=== PATIENT | female | born 1995 | race African-American/Black ===

== ENCOUNTER 2023-01-20 04:11 | Emergency (ER) | payer OTHER, SELFPAY ==
[2023-01-20 04:15] VITALS: BP 134/80; PULSE 81; RESP 18; TEMP 36.6; O2SAT 100; BMI 32.1
[2023-01-20 04:30] LABS: IDNOW Serial# 08D9AD1C; Strep A Nucleic Acid Negative (Negative)
--- NOTE | 2023-01-20 05:40 | ED.GENADULT ---
HPI - General Adult General Chief complaint: General Medical Stated complaint: Sore throat Time Seen by Provider: 01/20/23 05:14 Source: patient Mode of arrival: ambulatory History of Present Illness HPI narrative: 27-year-old female who reports onset of sore throat that she feels primarily on the right side and into the right ear but denies any fever, chills, cough. Related Data Allergies Allergy/AdvReac Type Severity Reaction Status Date / Time No Known Allergies Allergy Verified 01/20/23 04:17 Review of Systems Review of Systems: Pertinent positives and negatives as stated in [facility] Past Medical History Source: nursing notes reviewed Social History Social History Advance Directives: No Advance Directives Information Provided: Yes Physical Exam ED Vital Signs: Vital Signs - 24 hr 01/20/23 04:15 Temperature 98 F Pulse Rate 81 Respiratory Rate 18 Blood Pressure 134/80 Pulse Oximetry 100 Oxygen Delivery Method Room Air BMI result Body Mass Index 32.1 VITAL SIGNS: Reviewed. GENERAL: Well developed, well nourished, in no acute distress. HEAD: Normocephalic/atraumatic EYES: PERRLA, EOMI EARS: Ext canals without abnormality, TMs non-bulging and non-erythematous NOSE: Nares patent bilateral OROPHARYNX: no oral lesions noted, posterior pharynx clear and non-erythematous without noted tonsillar enlargement/erythema/exudates, no dental caries, uvula is midline and no unilateral tonsillar elevation. NECK: Supple, no adenopathy LUNGS: Normal breath sounds. No adventitious sounds or accessory muscle use. SpO2<100> CARDIOVASCULAR: Regular rate and rhythm without noted murmurs ABDOMEN: Soft, non-tender, non-distended with bowel sounds. MUSCULOSKELETAL: No tenderness, deformities, or effusions noted on gross inspection. EXTREMITIES: No cyanosis, clubbing or edema. SKIN: Inspection of the skin reveals no rashes NEUROLOGIC: Alert and oriented x 4. Strength and sensation to light touch were grossly intact x 4. Medical Decision Making Medical Decision Making [facility] Narrative: 27-year-old female with history and clinical presentation, DDX: Strep versus bacterial pharyngitis, postnasal drip. I reviewed the strep results which are negative to suggest bacterial pharyngitis, clinical exam already consistent with this finding, no evidence to suggest AOM and instructed patient for saline gargles, combination analgesics, and if she feels like she may be suffering from seasonal allergies I recommended Flonase and Claritin. She is otherwise discharged home in stable condition. Differential Diagnosis Please see the discussion above Lab Data Please see the discussion above Labs: Lab Results 01/20/23 Range/Units 04:18 S. pyogenes GrpA LORE Negative (Negative) Discharge Plan Discharge Clinical Impression: Pharyngitis Patient Disposition: Home, Self-Care Instructions: Pharyngitis (ED) Additional Instructions: 1. Recommend [id number] Tylenol/ibuprofen as needed for pain control. 2. Also recommend using [id number] Cepacol for additional relief sore throat. 3. Saline gargles, warm tap water/table salt, gargle for 5 minutes, 3 to 4 times a day. Return to the ER for any worsening symptoms.
[2023-01-20 06:09] VITALS: BP 136/77; PULSE 74; RESP 14; TEMP 36.8; O2SAT 100
== END 2023-01-20 06:10 | disposition home or self-care (01) ==
PROVIDERS: Emergency Provider Student in an Organized Health Care Education/Training Program; PCP Physician Assistant Medical
DX: J02.9 Acute pharyngitis, unspecified (principal); Z20.822 Contact with and (suspected) exposure to COVID-19; Z20.828 Contact with and (suspected) exposure to other viral communicable diseases
CPT/HCPCS: 87651; 99283; 99284

== ENCOUNTER 2025-05-18 11:53 | Outpatient (AMB) | payer OTHER, SELFPAY ==
--- OUTSIDE RECORDS SUMMARY | 2024-06-10 06:30 | XMS_ITS ---
Author Organization [facility] [address] Address [address] [place] [address] Care Team Providers Care Clinic Business Manager Name Role Phone CANDICE NICOLA Unavailable [phone] HANNAH CARRION Unavailable [phone] Medications Medication SIG (Take, Route, Frequency, Duration) Notes Start Date End Date Status Wegovy 0.5 MG/0.5ML 0.5mg Subcutaneous w eekly; Duration: 30 days 05/14/2024 Active Naratriptan HCl 2.5 MG 1 tablet Orally Once a day Active Montelukast Sodium 10 MG 1 tablet Orally Once a day Active EPINEPHrine 0.3 MG/0.3ML as directed Injection Active traZODone HCl 100 MG 1 tablet at bedtime Orally Once a day Active Albuterol Sulfate 108 (90 Base) MCG/ACT 1 puff as needed Inhalation every 4 hrs Active Escitalopram Oxalate 20 MG 1 tablet Orally Once a day Active Dasetta 1-35 MG-MCG as directed Orally Active Wegovy 0.25 MG/0.5ML 0.25mg Subcutaneous weekly; Duration: 30 days Active Topiramate 100 MG 1 tablet Orally Once a day Active Encounters Encounter Location Date Provider Diagnosis [facility] [address] [facility] [address] [place] [address] 06/10/2024 HANNAH CARRION Plan Of Treatment Next Appt Details Provider Name:NICOLA HARVEY, 05/20/2025 09:15:00 AM, [address], [address], [place], [address], Progress Notes * XOCHILT LEWISOB:1 07/28/1994 (29 yo F)Acc No.[id number]:06/10/2024 Patient: XOCHILT JOHN Provider: Tyson CARRION PA-C :1995 A ge:29 Y S ex:Female Date:06/10/2024 Address: [address], [place], [id number] Subjective: * Chief Complaints: * * Medical History: * Medications: T aking Wegovy 0.25 MG/0.5ML Solution Auto-injector 0.25mg Subcutaneous weekly , Taking Dasetta 1/35 1-35 MG-MCG Tablet as directed Orally , Taking Escitalopram Oxalate 20 MG Tablet 1 tablet Orally Once a day , Taking Albuterol Sulfate 108 (90 Base) MCG/ACT Aerosol Powder Breath Activated 1 puff as needed Inhalation every 4 hrs , Taking Topiramate 100 MG Tablet 1 tablet Orally Once a day , Taking traZODone HCl 100 MG Tablet 1 tablet at bedtime Orally Once a day , Taking EPINEPHrine 0.3 MG/0.3ML Solution Auto-injector as directed Injection , Taking Montelukast Sodium 10 MG Tablet 1 tablet Orally Once a day , Taking Naratriptan HCl 2.5 MG Tablet 1 tablet Orally Once a day , Taking Wegovy 0.5 MG/0.5ML Solution Auto-injector 0.5mg Subcutaneous weekly Objective: * Vitals: Assessment: Plan: * Treatment: * Images: Billing Information: * Visit Code: * Procedure Codes: * Electronic signature of BEL CARRION PA-C on 05/18/2025 at 02:41 PM EST Sign off status: Pending * Provider: Tyson CARRION PA-C Date: 08/10/2023 Generated for Eric rubio/Vernon/eTransmitting on: 07/18/2024 02:41 PM EST
--- OUTSIDE RECORDS SUMMARY | 2024-08-20 06:30 | XMS_ITS ---
Author Organization [facility] Address [address] [place] [address] Care Team Providers Care Graduate Assistant Athletic Trainer Name Role Phone NICOLA HARVEY Unavailable [phone] Medications Medication SIG (Take, Route, Fr equency, Duration) Notes Start Date End Date Status Wegovy 1 MG/0.5ML 1mg Subcutaneous wee kly; Duration: 30 days Active Encounters Encounter Location Date Provider Diagnosis [facility] [address] [address] 08/20/2024 NICOLA HARVEY Other obesity due to excess calories E66.09 ; BMI 30.0-30.9,adult Z68.30 ; Dietary counseling and surveillance Z71.3 ; Migraine without status migrainosus, not intractable, unspecified migraine type G43.909 and Depression with anxiety F41.8 Assessments Encounter Date Diagnosis (ICD Code) Assessment Notes Treatment Notes Treatment Clinical Notes Section Notes 08/20/2024 Other obesity due to excess calories (ICD-10 - E66.09) #Weight Management 08/20/2024 Updated labs are reviewed Thriving Increase to 1 mg Approaching target goal weight Discussed maintenance dosing Total time spent today was 30 minutes of which greater than 50% was spent on coordinating and counseling Patient has been found to be obese with a BMI of (30). Patient has class (1) obesity. Of note, some information is being carried forward from prior records for informational purposes only and is being cited so that efficiency, safety and quality of the patient's care is not compromised This note was prepared using voice recognition software and direct typing Please excuse inadvertent basketball referee or typing errors, or uncorrected word substitutions Although every attempt has been made by the provider to proofread this document, occasional misspellings and typographical errors may still be present Due to the previous pandemic, and the use of personal protective equipment (PPE) This may decrease voice recognition accuracy Inadvertent basketball referee errors may occur 08/20/2024 BMI 30.0-30.9,adult (ICD-10 - Z68.30) #Weight Management 08/20/2024 Updated labs are reviewed Thriving Increase to 1 mg Approaching target goal weight Discussed maintenance dosing Total time spent today was 30 minutes of which greater than 50% was spent on coordinating and counseling Patient has been found to be obese with a BMI of (30). Patient has class (1) obesity. Of note, some information is being carried forward from prior records for informational purposes only and is being cited so that efficiency, safety and quality of the patient's care is not compromised This note was prepared using voice recognition software and direct typing Please excuse inadvertent basketball referee or typing errors, or uncorrected word substitutions Although every attempt has been made by the provider to proofread this document, occasional misspellings and typographical errors may still be present Due to the previous pandemic, and the use of personal protective equipment (PPE) This may decrease voice recognition accuracy Inadvertent basketball referee errors may occur 08/20/2024 Dietary counseling and surveillance (ICD-10 - Z71.3) #Weight Management 08/20/2024 Updated labs are reviewed Thriving Increase to 1 mg Approaching target goal weight Discussed maintenance dosing Total time spent today was 30 minutes of which greater than 50% was spent on coordinating and counseling Patient has been found to be obese with a BMI of (30). Patient has class (1) obesity. Of note, some information is being carried forward from prior records for informational purposes only and is being cited so that efficiency, safety and quality of the patient's care is not compromised This note was prepared using voice recognition software and direct typing Please excuse inadvertent basketball referee or typing errors, or uncorrected word substitutions Although every attempt has been made by the provider to proofread this document, occasional misspellings and typographical errors may still be present Due to the previous pandemic, and the use of personal protective equipment (PPE) This may decrease voice recognition accuracy Inadvertent basketball referee errors may occur 08/20/2024 Migraine without status migrainosus, not intractable, unspecified migraine type (ICD-10 - G43.909) #Weight Management 08/20/2024 Updated labs are reviewed Thriving Increase to 1 mg Approaching target goal weight Discussed maintenance dosing Total time spent today was 30 minutes of which greater than 50% was spent on coordinating and counseling Patient has been found to be obese with a BMI of (30). Patient has class (1) obesity. Of note, some information is being carried forward from prior records for informational purposes only and is being cited so that efficiency, safety and quality of the patient's care is not compromised This note was prepared using voice recognition software and direct typing Please excuse inadvertent basketball referee or typing errors, or uncorrected word substitutions Although every attempt has been made by the provider to proofread this document, occasional misspellings and typographical errors may still be present Due to the previous pandemic, and the use of personal protective equipment (PPE) This may decrease voice recognition accuracy Inadvertent basketball referee errors may occur 08/20/2024 Depression with anxiety (ICD-10 - F41.8) #Weight Management 08/20/2024 Updated labs are reviewed Thriving Increase to 1 mg Approaching target goal weight Discussed maintenance dosing Total time spent today was 30 minutes of which greater than 50% was spent on coordinating and counseling Patient has been found to be obese with a BMI of (30). Patient has class (1) obesity. Of note, some information is being carried forward from prior records for informational purposes only and is being cited so that efficiency, safety and quality of the patient's care is not compromised This note was prepared using voice recognition software and direct typing Please excuse inadvertent basketball referee or typing errors, or uncorrected word substitutions Although every attempt has been made by the provider to proofread this document, occasional misspellings and typographical errors may still be present Due to the previous pandemic, and the use of personal protective equipment (PPE) This may decrease voice recognition accuracy Inadvertent basketball referee errors may occur Plan Of Treatment Medication Medication Name Sig Start Date Stop Date Notes Wegovy 1 MG/0.5ML 1mg Subcutaneous wee kly; Duration: 30 days Next Appt Details Provider Name:NICOLA HARVEY, 05/20/2025 09:15:00 AM, [address] [facility], [facility] [address], [place], [address], Progress Notes * XOCHILT LEWISOB:1 07/28/1994 (29 yo F)Acc No.[id number]:08/20/2024 Patient: XOCHILT JOHN Provider: Aurea HARVEY NP :1995 A ge:29 Y S ex:Female Date:08/20/2024 Address:[address], [place], [id number] Subjective: * Chief Complaints: * * HPI: C onstitutional: Patient is here today for a weight management f/u Patient seen and examined. Full past medical history, social history, family history, allergies and current medications were reviewed and updated. #Weight Management 08/20/2024 Comprehensive labs were reviewed May, [facility] Currently on Wegovy 0.5mg Injection: Appetite suppression is starting to wear off Interested in increasing to 1 mg Reports constipation that is improving with supplemental fiber Denies nausea side effect Down 18 pounds overall, most of which are fat mass Approaching target goal weight of 160 pounds We discussed maintenance dosing Diet: High protein, fruit, vegetables, some fast food Exercise: Currently Indoor Cycling x2 /week, tracking with 10,000 goal, usually 6,000 steps daily. Non-smoker. 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 * ROS: A ll Other Systems: Review of Systems (ROS) A ll others negative except those mentioned in HPI. * Medical History: Objective: * Vitals: * Examination: G eneral Examination: GENERAL APPEARANCE: i n no acute distress, well developed, well nourished. H EAD: n ormocephalic, atraumatic. E YES: p upils equal, round, reactive to light and accommodation. E ARS: n ormal. O RAL CAVITY: m ucosa moist. T HROAT: c lear. N THO/THYROID: n tho supple, full range of motion, no cervical lymphadenopathy. S KIN: n o suspicious lesions, warm and dry. H EART: n o murmurs, regular rate and rhythm, S1, S2 normal. L UNGS: c lear to auscultation bilaterally. A BDOMEN: n ormal, bowel sounds present, soft, nontender, nondistended. E XTREMITIES: n o clubbing, cyanosis, or edema. N EUROLOGIC: n onfocal, motor strength normal upper and lower extremities, sensory exam intact. Assessment: * Assessment: 1. O ther obesity due to excess calories - E66.09 (Primary) 2 . B ME 30.0-30.9,adult - Z68.30 3 . D ietary counseling and surveillance - Z71.3 ?4. M igraine without status migrainosus, not intractable, unspecified migraine type - G43.909 5 . D epression with anxiety - F41.8 #Weight Management 08/20/2024 Updated labs are reviewed Thriving Increase to 1 mg Approaching target goal weight Discussed maintenance dosing Total time spent today was 30 minutes of which greater than 50% was spent on coordinating and counseling Patient has been found to be obese with a BMI of (30). Patient has class (1) obesity. Of note, some information is being carried forward from prior records for informational purposes only and is being cited so that efficiency, safety and quality of the patient's care is not compromised This note was prepared using voice recognition software and direct typing Please excuse inadvertent basketball referee or typing errors, or uncorrected word substitutions Although every attempt has been made by the provider to proofread this document, occasional misspellings and typographical errors may still be present Due to the previous pandemic, and the use of personal protective equipment (PPE) This may decrease voice recognition accuracy Inadvertent basketball referee errors may occur. Plan: * Treatment: * Images: Billing Information: * Visit Code: * Procedure Codes: * Electronic signature of CARON HARVEY on 05/18/2025 at 02:42 PM EST Sign off status: Pending * Provider: Aurea AHRVEY NP Date: 0 08/20/2024 Generated for Printi ng/Faxing/eTransmitting on: 1 07/18/2024 02:42 PM EST History and Physical Notes * HPI (History of Present Illness) Category Sub-Category Detail Notes Category Not es Constitutional Patient is here today for a weight management f/u Patient seen and examined. Full past medical history, social history, family history, allergies and current medications were reviewed and updated. #Weight Management 08/20/2024 Comprehensive labs were reviewed May, [facility] Currently on Wegovy 0.5mg Injection: Appetite suppression is starting to wear off Interested in increasing to 1 mg Reports constipation that is improving with supplemental fiber Denies nausea side effect Down 18 pounds overall, most of which are fat mass Approaching target goal weight of 160 pounds We discussed maintenance dosing Diet: High protein, fruit, vegetables, some fast food Exercise: Currently Indoor Cycling x2 /week, tracking with 10,000 goal, usually 6,000 steps daily. Non-smoker. 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 Has attempted losing weight through cycling, unable to maintain weight loss Highest weight: 215lbs Lowest weight: 165lbs Goal weight: 150lbs PCP Ana Maria Solorzano at [facility] screening/STOP-BANG/[place], screened when she was a teenager, negative Comprehensive labs May 2024, [facility] CBC is stable Renal function electrolytes and LFTs are stable ALT minimally elevated at 51 Total cholesterol 123, triglycerides 106, HDL 41, LDL 62 Vitamin D 30 TSH 1.48 Examination Category Sub-Category Detail Notes Category Not es General Examination GENERAL APPEARANCE: in no ac comanche distress, well developed, well nourished HEAD: normocephalic, atrau matic EYES: pupils equal, round, reactive to light and accommodation EARS: normal THROAT: clear NECK/THYROID: neck supple, full ra nge of motion, no cervical lymphadenopathy HEART: no murmurs, regular rate and rhythm, S1, S2 normal LUNGS: clear to auscultatio n bilaterally ABDOMEN: normal, bowel sounds present, soft, nontender, nondistended NEUROLOGIC: nonfocal, motor stre ngth normal upper and lower extremities, sensory exam intact SKIN: no suspicious lesion s, warm and dry EXTREMITIES: no clubbing, cyanosi s, or edema ORAL CAVITY: mucosa moist
--- OUTSIDE RECORDS SUMMARY | 2025-01-13 04:15 | XMS_ITS ---
Author Organization [facility] [address] Address [address] [place] [address] Care Team Providers Care Product Communications Manager Name Role Phone VONNIETom NICOLA Unavailable [phone] Encounters Encounter Location Date Provider Diagnosis [facility] [address] [place] [address] 01/13/2025 NICOLA HARVEY Plan Of Treatment Next Appt Details Provider Name:NICOLA HARVEY, 05/20/2025 09:15:00 AM, [address], [address], [place], [address], Progress Notes * XOCHILT LEWISOB:1 07/28/1994 (29 yo F)Acc No.[id number]:01/13/2025 Patient: XOCHILT JOHN Provider: Aurea HARVEY NP :1995 A ge:29 Y S ex:Female Date:01/13/2025 Address:[address] [id number] Subjective: * Chief Complaints: * * Medical History: Objective: * Vitals: Assessment: Plan: * Treatment: * Images: Billing Information: * Visit Code: * Procedure Codes: * Electronic signature of CARON HARVEY on 05/18/2025 at 02:42 PM EST Sign off status: Pending * Provider: Aurea HARVEY NP Date: 0 01/13/2025 Generated for Printi ng/Faxing/eTransmitting on: 1 07/18/2024 02:42 PM EST
--- OUTSIDE RECORDS SUMMARY | 2025-03-23 05:00 | XMS_ITS ---
Author Organization [facility] Address [address] [place] [address] Care Team Providers Care Pressure Controller Name Role Phone NICOLA HARVEY Unavailable [phone] Medications Medication SIG (Take, Route, Frequency, Duration) Notes Start Date End Date Status Linzess 145 MCG 1 capsule at least 3 0 minutes before the first meal of the day on an empty stomach Orally Once a day; Duration: 30 days 08/07/2024 Active Naratriptan HCl 2.5 MG 1 tablet Orally Once a day Active Wegovy 1.7 MG/0.75ML 1.7mg Subcutaneous weekly; Duration: 30 days Active Wegovy 1 MG/0.5ML 1mg Subcutaneous wee kly; Duration: 30 days Active Ondansetron 4 MG 1 tablet on the tong ue and allow to dissolve prn nausea/vomiting Orally twice day; Duration: 30 days 09/07/2024 Active Montelukast Sodium 10 MG 1 tablet Orally Once a day Active EPINEPHrine 0.3 MG/0.3ML as directed Injection Active traZODone HCl 100 MG 1 tablet at bedtime Orally Once a day Active Topiramate 100 MG 1 tablet Orally Once a day Active Albuterol Sulfate 108 (90 Base) MCG/ACT 1 puff as needed Inhalation every 4 hrs Active Escitalopram Oxalate 20 MG 1 tablet Orally Once a day Active Dasetta 1-35 MG-MCG as directed Orally Active Encounters Encounter Location Date Provider Diagnosis [facility] [address] [address] 03/23/2025 NICOLA HARVEY Overweight (BMI 25.0-29.9) E66.3 ; BMI 27.0-27.9,adult Z68.27 ; Dietary counseling and surveillance Z71.3 ; Migraine without status migrainosus, not intractable, unspecified migraine type G43.909 ; Depression with anxiety F41.8 and Encounter for examination of blood pressure without abnormal findings Z01.30 Assessments Encounter Date Diagnosis (ICD Code) Assessment Notes Treatment Notes Treatment Clinical Notes Section Notes 03/23/2025 Overweight (BMI 25.0-29.9) (ICD-10 - E66.3) #Weight Management 03/23/2025 cont maintenance dosing Follow-up on updated labs later in the fall with her PCP Total time spent today was 30 minutes of which greater than 50% was spent on coordinating and counseling Patient has been found to be overweight with a BMI of (27.9). Patient has overweight class per BMI standards Of note, some information is being carried forward from prior records for informational purposes only and is being cited so that efficiency, safety and quality of the patient's care is not compromised This note was prepared using voice recognition software and direct typing Please excuse inadvertent teradata developer or typing errors, or uncorrected word substitutions Although every attempt has been made by the provider to proofread this document, occasional misspellings and typographical errors may still be present Due to the previous pandemic, and the use of personal protective equipment (PPE) This may decrease voice recognition accuracy Inadvertent teradata developer errors may occur 03/23/2025 BMI 27.0-27.9,adult (ICD-10 - Z68.27) #Weight Management 03/23/2025 cont maintenance dosing Follow-up on updated labs later in the fall with her PCP Total time spent today was 30 minutes of which greater than 50% was spent on coordinating and counseling Patient has been found to be overweight with a BMI of (27.9). Patient has overweight class per BMI standards Of note, some information is being carried forward from prior records for informational purposes only and is being cited so that efficiency, safety and quality of the patient's care is not compromised This note was prepared using voice recognition software and direct typing Please excuse inadvertent teradata developer or typing errors, or uncorrected word substitutions Although every attempt has been made by the provider to proofread this document, occasional misspellings and typographical errors may still be present Due to the previous pandemic, and the use of personal protective equipment (PPE) This may decrease voice recognition accuracy Inadvertent teradata developer errors may occur 03/23/2025 Dietary counseling and surveillance (ICD-10 - Z71.3) #Weight Management 03/23/2025 cont maintenance dosing Follow-up on updated labs later in the fall with her PCP Total time spent today was 30 minutes of which greater than 50% was spent on coordinating and counseling Patient has been found to be overweight with a BMI of (27.9). Patient has overweight class per BMI standards Of note, some information is being carried forward from prior records for informational purposes only and is being cited so that efficiency, safety and quality of the patient's care is not compromised This note was prepared using voice recognition software and direct typing Please excuse inadvertent teradata developer or typing errors, or uncorrected word substitutions Although every attempt has been made by the provider to proofread this document, occasional misspellings and typographical errors may still be present Due to the previous pandemic, and the use of personal protective equipment (PPE) This may decrease voice recognition accuracy Inadvertent teradata developer errors may occur 03/23/2025 Migraine without status migrainosus, not intractable, unspecified migraine type (ICD-10 - G43.909) #Weight Management 03/23/2025 cont maintenance dosing Follow-up on updated labs later in the fall with her PCP Total time spent today was 30 minutes of which greater than 50% was spent on coordinating and counseling Patient has been found to be overweight with a BMI of (27.9). Patient has overweight class per BMI standards Of note, some information is being carried forward from prior records for informational purposes only and is being cited so that efficiency, safety and quality of the patient's care is not compromised This note was prepared using voice recognition software and direct typing Please excuse inadvertent teradata developer or typing errors, or uncorrected word substitutions Although every attempt has been made by the provider to proofread this document, occasional misspellings and typographical errors may still be present Due to the previous pandemic, and the use of personal protective equipment (PPE) This may decrease voice recognition accuracy Inadvertent teradata developer errors may occur 03/23/2025 Depression with anxiety (ICD-10 - F41.8) #Weight Management 03/23/2025 cont maintenance dosing Follow-up on updated labs later in the fall with her PCP Total time spent today was 30 minutes of which greater than 50% was spent on coordinating and counseling Patient has been found to be overweight with a BMI of (27.9). Patient has overweight class per BMI standards Of note, some information is being carried forward from prior records for informational purposes only and is being cited so that efficiency, safety and quality of the patient's care is not compromised This note was prepared using voice recognition software and direct typing Please excuse inadvertent teradata developer or typing errors, or uncorrected word substitutions Although every attempt has been made by the provider to proofread this document, occasional misspellings and typographical errors may still be present Due to the previous pandemic, and the use of personal protective equipment (PPE) This may decrease voice recognition accuracy Inadvertent teradata developer errors may occur 03/23/2025 Encounter for examination of blood pressure without abnormal findings (ICD-10 - Z01.30) #Weight Management 03/23/2025 cont maintenance dosing Follow-up on updated labs later in the fall with her PCP Total time spent today was 30 minutes of which greater than 50% was spent on coordinating and counseling Patient has been found to be overweight with a BMI of (27.9). Patient has overweight class per BMI standards Of note, some information is being carried forward from prior records for informational purposes only and is being cited so that efficiency, safety and quality of the patient's care is not compromised This note was prepared using voice recognition software and direct typing Please excuse inadvertent teradata developer or typing errors, or uncorrected word substitutions Although every attempt has been made by the provider to proofread this document, occasional misspellings and typographical errors may still be present Due to the previous pandemic, and the use of personal protective equipment (PPE) This may decrease voice recognition accuracy Inadvertent teradata developer errors may occur Plan Of Treatment Medication Medication Name Sig Start Date Stop Date Notes Wegovy 1.7 MG/0.75ML 1.7mg Subcutaneous weekly; Duration: 30 days Next Appt Details Provider Name:NICOLA HARVEY, 05/20/2025 09:15:00 AM, [address] [facility], [facility] [address], [place], [address], Progress Notes * XOCHILT LEWIS:1 07/28/1994 (29 yo F)Acc No.[id number]:03/23/2025 Patient: XOCHILT JOHN Provider: Aurea HARVEY NP :1995 A ge:29 Y S ex:Female Date:03/23/2025 Address: [address], [place], [id number] Subjective: * Chief Complaints: * * HPI: C onstitutional: Patient is here today for a weight management f/u Patient seen and examined. Full past medical history, social history, family history, allergies and current medications were reviewed and updated. body compositon reviewed today #Weight Management 03/23/2025 24-hour dietary recall Breakfast: Lunch: Dinner: Snacking: Micronutrients: multivitamin @ target goal weight Currently on Wegovy 1.7 mg Switched to injections every 2 weeks for maintenance Injection: Reports constipation that is improving with supplemental fiber Denies nausea side effect Exercise: Currently Indoor Cycling x2 /week, tracking with 10,000 goal, usually 6,000 steps daily. Weight lifting. Goes to the gym 3-4 times a week Non-smoker. 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 * ROS: A ll Other Systems: Review of Systems (ROS) A ll others negative except those mentioned in HPI. * Medical History: * Medications: T aking Wegovy 1.7 MG/0.75ML Solution Auto-injector 1.7mg Subcutaneous weekly , Taking Dasetta 1-35 MG-MCG Tablet as directed Orally , [...] tablet Orally Once a day , Taking Linzess 145 MCG Capsule 1 capsule at least 30 minutes before the first meal of the day on an empty stomach Orally Once a day , Taking Ondansetron 4 MG Tablet Disintegrating 1 tablet on the tongue and allow to dissolve prn nausea/vomiting Orally twice day , Taking Wegovy 1 MG/0.5ML Solution Auto- injector 1mg Subcutaneous weekly Objective: * Vitals: * Examination: G eneral [...] exam intact. Assessment: * Assessment: 1. O verweight (BMI 25.0-29.9) - E66.3 2 . B VT 27.0-27.9,adult - Z68.27? 3. D ietary counseling and surveillance - Z71.3 4 . M igraine without status migrainosus, not intractable, unspecified migraine type - G43.909 5 . D epression with anxiety - F41.8 6 . E ncounter for examination of blood pressure without abnormal findings - Z01.30 #Weight Management 03/23/2025 cont maintenance dosing Follow-up on updated labs later in the fall with her PCP Total time spent today was 30 minutes of which greater than 50% was spent on coordinating and counseling Patient has been found to be overweight with a BMI of (27.9). Patient has overweight class per BMI standards Of note, some information is being carried forward from prior records for informational purposes only and is being cited so that efficiency, safety and quality of the patient's care is not compromised This note was prepared using voice recognition software and direct typing Please excuse inadvertent teradata developer or typing errors, or uncorrected word substitutions Although every attempt has been made by the provider to proofread this document, occasional misspellings and typographical errors may still be present Due to the previous pandemic, and the use of personal protective equipment (PPE) This may decrease voice recognition accuracy Inadvertent teradata developer errors may occur Plan: * Treatment: * Images: Billing Information: * Visit Code: * Procedure Codes: * Electronic signature of ACRON HARVEY on 05/18/2025 at 02:42 PM EST Sign off status: Pending * Provider: Aurea HARVEY NP Date: 0 03/23/2025 Generated for Eric rubio/Vernon/Elias on: 1 07/18/2024 02:42 PM EST History and Physical Notes * HPI (History of Present Illness) Category Sub-Category Detail Notes Category Not es Constitutional Patient is here today for a weight management f/u Patient seen and examined. Full past medical history, social history, family history, allergies and current medications were reviewed and updated. body compositon reviewed today #Weight Management 03/23/2025 24-hour dietary recall Breakfast: Lunch: Dinner: Snacking: Micronutrients: multivitamin @ target goal weight Currently on Wegovy 1.7 mg Switched to injections every 2 weeks for maintenance Injection: Reports constipation that is improving with supplemental fiber Denies nausea side effect Exercise: Currently Indoor Cycling x2 /week, tracking with 10,000 goal, usually 6,000 steps daily. Weight lifting. Goes to the gym 3-4 times a week Non-smoker. 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 Has attempted losing weight through cycling, unable to maintain weight loss Highest weight: 215lbs Lowest weight: 165lbs Goal weight: 150lbs PCP Ana Maria Solorzano at [facility] screening/[facility]-B[facility]ms, screened when she was a teenager, negative Comprehensive labs May 2024, [facility] CBC is stable Renal function electrolytes and LFTs are stable ALT minimally elevated at 51 Total cholesterol 123, triglycerides 106, HDL 41, LDL 62 Vitamin D 30 TSH 1.48 Examination Category Sub-Category Detail Notes Category Not es General Examination GENERAL APPEARANCE: in no ac hilda distress, well developed, well nourished HEAD: normocephalic, [...]
--- NOTE | 2025-05-18 12:08 | A.OFFVIS_ITS ---
Vital Signs 05/18/25 12:19 Height 5 ft 1 in Weight 159 lb BMI 30.0 BP 116/82 Blood Pressure Location Rt brachial Position Sitting Respiration 16 Pulse 80 Pulse Oximetry (%) 99 Oxygen Delivery Method Room Air Intake Visit Reasons: ENP-Chronic migraine w/o aura w/o status migrain. Supervisor Paper Coating Required: No Allergies peanut Allergy (Severe, Verified 05/18/25 12:21) Anaphylaxis banana Allergy (Unknown, Verified 05/18/25 12:21) Unknown celery Allergy (Unknown, Verified 05/18/25 12:21) Unknown tree nut Allergy (Verified 05/18/25 12:21) Unknown HPI Comments Details: Sonia is a 29-year-old female patient with a past medical history of asthma, sinus problems, depression, anxiety, and constipation here today for a headache evaluation. According to the patient today, she began having headaches at age 18. Her sister also gets migraines. She is currently experiencing a headache 2 days per week and can last up to 2 days. They are often present upon awakening from sleep. Her headaches are throbbing and typically unilateral (most often on right side) temporal and aggravated by activity. She has accompanied light sensitivity and nausea. She has some sharp pains to the side of her anglican often before the onset of her migraine headaches. Taken off of combined OCP and switched to progesterone only - this was switched about 1 month ago but so far has seen no difference in headaches in relation to this change. Headache characteristics: Time of onset:Age 18 Location:Temporal- unilateral but most often R side Radiation:Neck Positional component:No Character:Throbbing Severity:Can reach 10/10 Duration:Up to 2 days Frequency:2 times per week Acute aggravating factors:Stress/work Acute relieving factors:Unknown Associated symptoms:Light sensitivity and nausea Aura:No Headache triggers:Unknown/stress Relation to menses:No Other related background information: Sleep:Reports that she sleep well Stressors:Denies excessive stress Hydration:3 16oz bottles of water daily Caffeine intake: A few times per week Alcohol intake:Socially Substance use:None Tobacco use:None Last eye exam: 7 years ago - denies any vision trouble Last dental visit: December of 2024- No clenching but notes some grinding in the past History of head injury:No Family planning considerations:No plans to become Past medication trials: Topiramate 100mg daily - No major headache benefit and also has parestehsias Naratriptan- Nausea Sumatriptan- Nausea Ibuprofen- No benefit Tylenol- Marginal benefit Nurtec 75mg as needed- No able to get d/t insurance barriers Prior workup: Sleep study- Non-diagnostic 01/2025 at [facility]: MRI brain without contrast - normal study [facility] Medical History (Updated 05/18/25 @ 12:55 by Mariah Gomez CNP) Herpes labialis Anxiety and depression Vitamin D deficiency Migraine Review of Systems Const All systems reviewed & are unremarkable except as noted in HPI and below Physical Exam Const General: cooperative, healthy appearing, comfortable and no acute distress Nutritional Appearance: well nourished Orientation/consciousness: patient oriented x3 Limitations: no limitations HEENT Head: Yes normal to inspection and Yes normocephalic Eyes General: appearance normal, both eyes and all related structures Visual Heredia: normal visual heredia by confrontation Alignment and Position: alignment normal Periorbital: periorbital findings normal Eyelids: Yes eyelids normal Conjunctivae: conjunctivae normal Sclerae: sclerae normal Neck Neck: Yes normal visual inspection and Yes full ROM General: Yes no CVA tenderness Back/Spine/Pelvis Back: no CVA tenderness Cervical Spine: normal cervical lordosis Thoracic/Lumbar Spine: thoracic and lumbar spine normal to inspection Neuro General: patient oriented x3 Cranial nerves: Yes CN's II-XII intact bilaterally and Yes Facial sensation intact/muscles of mastication intact Cognition (Neuro): normal cognition Gait exam (Neuro): Normal gait present Motor exam (neuro): 5/5 motor strength present throughout and no tremor noted Sensory Exam: double simultaneous stimulation for sensation normal Deep tendon reflexes (DTR's): Right triceps reflex intensity grade: 2+, Left triceps reflex intensity grade: 2+, Rt Biceps (C5, C6): 2+, Left biceps reflex intensity grade: 2+, Right brachioradialis reflex intensity grade: 2+, Left brachioradialis reflex intensity grade: 2+, Right patellar reflex intensity grade: 2+, Left patellar reflex intensity grade: 1+, Right ankle reflex intensity grade: 2+ and Left ankle reflex intensity grade: 2+ Romberg Test: Negative Pupils: Normal pupillary reactivity/response: bilateral Psych Appearance: grossly normal Mental Status: mental status grossly normal Speech and movement: Normal speech and movement present and Clear speech present Affect: normal affect Attitude: cooperative Thought process: Normal thought process present Thought content: Normal thought content present Insight: Good insight present (Psych) Judgement: Good judgement present (Psych) Assessment & Plan Assessment & Plan (1) Migraine without aura and without status migrainosus, not intractable: Code(s): G43.009 - Migraine without aura, not intractable, without status migrainosus Category: Medical Plan Sonia is a 29-year-old female patient with a past medical history of asthma, sinus problems, depression, anxiety, and constipation here today for a headache evaluation. Her headaches are characteristic of a typical episodic migraine. She has had normal imaging. Unfortunately topiramate has not worked well for her and has caused adverse effects. We will start amitriptyline 10 mg at bedtime and if this works well, we can start to reduce her topiramate slowly. She has not had any luck with triptan with both the sumatriptan and naratriptan causing nausea. We will go forth with trying a 3rd triptan as it is often required to start a new class of medication. We will try rizatriptan 5mg and she will update me on how she responds to it. - Amitriptylien 10mg nightly for migraine prevention - Trial of Rizatriptan 5mg as needed for migraine acute therapy - The goal be to eventually taper off of topiramate slowly especially if the amitriptyline works well - Next step in acute therapy would include trial of a GEPANT - Next steps in preventive therapy would include an anti CGRP monoclonal antibody injectable Medications: New rizatriptan take 1 tablet at onset of headache; if no relief, may repeat 1 tablet after at least 2 hrs PO 7 tabs 0RF Coding Level of Care Code New Pt Level 4 (17439) Diagnoses Migraine without aura and without status migrainosus, not intractable G43.009
[2025-05-18 12:19] VITALS: BP 116/82; PULSE 80; RESP 16; O2SAT 99
--- OUTSIDE RECORDS SUMMARY | 2025-05-18 14:41 | XMS_ITS | Patient Health Record ---
[facility] Address [address] [facility] [place] [address] Care Team Providers Care Airworthiness Safety Inspector Name Role Phone Deb Solorzano PA-C Primary Care Provider Unav Link Carranzaen Unavailable [phone] Allergies Allergen (clinical drug ingredient) Drug/Non Drug Allergy documented on EMR Reaction Allergy Type Onset Date Status Celery celery (uncoded) Unknown Allergy Act haley Banana Concentrate Unknown Drug Allergy Active peanut allergenic extract Peanut (Diagnostic) Unknown Drug Allergy Active Tree Nuts Unknown Allergy Active Reason For Referral No Information Medications Medication SIG (Take, Route, Frequency, Duration) Notes Start Date End Date Status Montelukast Sodium 10 MG 1 tablet Orally Once a day; Duration: 30 day(s) Active Omeprazole 20 MG 1 capsule 30 minutes before morning meal Orally Once a day; Duration: 30 day(s) Active albuterol Active EPINEPHrine 0.3 MG/0.3ML as directed Inhalation Active Riboflavin 400 MG 1 capsule Orally Onc e a day; Duration: 30 day(s) Not-Mateo ing Ciclopirox Olamine 0.77 % 1 application to affected area Externally to feet Twice a day; Duration: 30 days Active Topiramate 100 MG 1 tablet Orally Once a day Active Naratriptan HCl 2.5 MG 1 tablet Orally O nce a day; Duration: 1 day(s) Active Aurovela 1/20 1-20 MG-MCG 1 tablet Orally Once a day; Duration: 21 day(s) Active Immunizations Vaccine Route Administration Date Status Comme nts COVID-19 Pfizer BioNTech Vaccine Unknown 01/13/2021 Administered First Dose:12/16 Social History Tobacco Use: Social History Observation Description Date Details (start date - stop date) Never Smoker NA - NA Tobacco Use/Smoking Question Answer Notes Are you a: nonsmoker Alcohol Screen Question Answer Notes Did you have a drink contain ing alcohol in the past year? Yes How often did you have a dri nk containing alcohol in the past year? 2 to 3 times a week (3 points) How often did you have 6 or more drinks on one occasion in the past year? Weekly (3 points) Points 6 Interpretation Positive Tobacco use other than smoking: Question Answer Notes Are you an other tobacco user? No Plan Of Treatment No Information Insurance Providers Payer Name Payer Address Payer Phone Subscriber Number Group Number Insured Name Patient Relationship to Insured Coverage Start Date Coverage End Date [facility] [address] [facility] [id number] [phone] [id number] [employer] Child - Insured has Financial Responsibility Medical (General) History Medical History History ICD Code Herpes labialis Obesity Anxiety disorder Headaches Amygdalolith Seasonal allergies asthma Reflux ( GERD) menorrhagia urticaria Psoriasis/eczema Surgical History Surgery Date(Month/Year)
--- OUTSIDE RECORDS SUMMARY | 2025-05-18 14:42 | XMS_ITS | Clinical Summary ---
Author Organization [facility] Address [address] [place] [address] Care Team Providers Care Chemical Tester Name Role Phone Monica Christie MD Primary Care Provider [phone] Social History Tobacco Use Types Packs/Day Years Used Date Smoking Tobacco: Never Assessed Comments Unknown Sex and Gender Information Value Date Recorded Sex Assigned at Not on file Legal Sex Female 3:35 PM EST Gender Identity Not on file Sexual Orientation Not on file Plan of Treatment Health Maintenance Due Date Last Done Comments DTaP,Tdap,and Td Vaccines (1 - Tdap) 2015 Hepatitis B Vaccines (1 of 3 - 19+ 3-dose series) 2015 Cervical Cancer Screening: P ap Smear 2017 HPV Vaccines (1 - 3-dose SCD M series) 2023 Depression Screening 07/15/2024 COVID-19 Vaccine (1 - 2023-2 5 season) 2025 Influenza Vaccine (#1) 2025 RSV Immunization Adult Patie nts (1 - 1-dose 75+ series) 2071 HIB Vaccines Aged Out No longer eligi ble based on patient's age to complete this topic Hepatitis A Vaccines Aged Out No long er eligible based on patient's age to complete this topic IPV Vaccines Aged Out No longer eligi ble based on patient's age to complete this topic MMR Vaccines Aged Out No longer eligi ble based on patient's age to complete this topic Meningococcal ACWY Vaccine Aged Out N o longer eligible based on patient's age to complete this topic Meningococcal B Vaccine Aged Out No l onger eligible based on patient's age to complete this topic Pneumococcal Vaccine: Pediat rics (0 to 5 Years) and At-Risk Patients (6 to 49 Years) Aged Out No longer eligible b ased on patient's age to complete this topic RSV Immunization Patients Un surinder 20 months Aged Out No longer eligible b ased on patient's age to complete this topic Varicella Vaccines Aged Out No longer eligible based on patient's age to complete this topic Care Teams Chemical Tester Relationship Specialty Start Date End Date Monica Christie MD PCP - General Internal Medicine 02/05/18
--- OUTSIDE RECORDS SUMMARY | 2025-05-18 14:42 | XMS_ITS | Patient Health Record ---
Author Organization [facility] Address [address] [place] [address] Care Team Providers Care Assistant Produce Manager Name Role Phone NICOLA HARVEY Unavailable [phone] SHEYLAHANNAH KELLER Unavailable [phone] Allergies No Known Allergies Reason For Referral No Information Medications Medication SIG (Take, Route, Frequency, Duration) Notes Start Date End Date Status Naratriptan HCl 2.5 MG 1 tablet Orally O nce a day Active Montelukast Sodium 10 MG 1 tablet Orally Once a day Active EPINEPHrine 0.3 MG/0.3ML as directed Injection Active traZODone HCl 100 MG 1 tablet at bedtime Orally Once a day Active Dasetta 1-35 MG-MCG as directed Orally Active Wegovy 1.7 MG/0.75ML 1.7mg Subcutaneous weekly; Duration: 30 days Active Wegovy 1 MG/0.5ML 1mg Subcutaneous wee kly; Duration: 30 days Not-Taking Ondansetron 4 MG 1 tablet on the tong ue and allow to dissolve prn nausea/vomiting Orally twice day; Duration: 30 days 09/07/2024 Active Linzess 145 MCG 1 capsule at least 3 0 minutes before the first meal of the day on an empty stomach Orally Once a day; Duration: 30 days 08/07/2024 Active Escitalopram Oxalate 20 MG 1 tablet Orally Once a day Active Topiramate 100 MG 1 tablet Orally Once a day Active Albuterol Sulfate 108 (90 Base) MCG/ACT 1 puff as needed Inhalation every 4 hrs Active Problems Problem Type SNOMED Code ICD Code Onset Dates Problem Status W/U Status Risk Notes Problem Obesity due to excess calories (538522741) Other obesity due to excess calories (E66.09) Active confirmed Problem Migraine (36387471) Migraine without status migrainosus, not intractable, unspecified migraine type (G43.909) Active confirmed Problem Body mass index 30.00 to 34.99 (87993691971800 7) Body mass index [BMI] 33.0-33.9, adult (Z68.33) Active confirmed Problem Body mass index 30.00 to 34.99 (37166170879610 7) BMI 31.0-31.9,adult (Z68.31) Active confirmed Problem Body mass index 30+ - obesity (542474484) BMI 30.0-30.9,adult (Z68.30) Active confirmed Problem Overweight (297398718) Overweight (BMI 25.0-29.9) (E66.3) Active confirmed Problem Mixed anxiety and depressive disorder (251331215) Depression with anxiety (F41.8) Active confirmed Vital Signs Heart Rate 87 /min 04/08/2025 Oximetry 97 % 04/08/2025 Blood pressure diastolic 80 mm Hg 04/08/2025 Height 62 in 04/08/2025 Blood pressure systolic 112 mm Hg 04/08/2025 Weight 154.5 lbs 04/08/2025 BMI 28.26 kg/m2 04/08/2025 Encounters Encounter Location Date Provider Diagnosis [facility] [address] 07/07/2024 NICOLAMAXIMILIAN HARVEY Other obesity due to excess calories E66.09 ; BMI 30.0-30.9,adult Z68.30 ; Dietary counseling and surveillance Z71.3 ; Migraine without status migrainosus, not intractable, unspecified migraine type G43.909 and Depression with anxiety F41.8 [facility] [address] 08/27/2024 NICOLA BORHOT Overweight (BMI 25.0-29.9) E66.3 ; BMI 27.0-27.9,adult Z68.27 ; Dietary counseling and surveillance Z71.3 ; Migraine without status migrainosus, not intractable, unspecified migraine type G43.909 and Depression with anxiety F41.8 [facility] [address] 10/08/2024 NICOLA BORHOT Overweight (BMI 25.0-29.9) E66.3 ; BMI 28.0-28.9,adult Z68.28 ; Dietary counseling and surveillance Z71.3 ; Migraine without status migrainosus, not intractable, unspecified migraine type G43.909 and Depression with anxiety F41.8 [facility] [address] [address] 11/25/2024 NICOLA BORHOT Overweight (BMI 25.0-29.9) E66.3 ; BMI 28.0-28.9,adult Z68.28 ; Dietary counseling and surveillance Z71.3 ; Migraine without status migrainosus, not intractable, unspecified migraine type G43.909 and Depression with anxiety F41.8 [facility] [address] 02/02/2025 NICOLA BORHOT Overweight (BMI 25.0-29.9) E66.3 ; BMI 27.0-27.9,adult Z68.27 ; Dietary counseling and surveillance Z71.3 ; Migraine without status migrainosus, not intractable, unspecified migraine type G43.909 ; Depression with anxiety F41.8 and Encounter for examination of blood pressure without abnormal findings Z01.30 [facility] [address] 04/08/2025 NICOLA BORHOT Overweight (BMI 25.0-29.9) E66.3 ; BMI 27.0-27.9,adult Z68.27 ; Dietary counseling and surveillance Z71.3 ; Migraine without status migrainosus, not intractable, unspecified migraine type G43.909 ; Depression with anxiety F41.8 and Encounter for examination of blood pressure without abnormal findings Z01.30 [facility] [address] 06/10/2024 NICOLA KARENHOT [facility] [address] [place] [address] 04/13/2025 NICOLA BORHOT [facility] [address] [address] 04/27/2025 NICOLA BORHOT [facility] [address] 06/04/2024 NICOLA BORHOT [facility] [address] [place] [address] 06/10/2024 NICOLA BORHOT [facility] [address] [place] [address] 06/10/2024 NICOLA BORHOT [facility] [address] [place] [address] 06/10/2024 NICOLA BORHOT [facility] [address] [place] [address] 08/06/2024 NICOLA BORHOT [facility] [address] [place] [address] 08/20/2024 NICOLA BORHOT [facility] [address] [place] [address] 08/20/2024 NICOLA BORHOT [facility] [address] [place] [address] 09/05/2024 NICOLA BORHOT [facility] [address] [place] [address] 09/24/2024 NICOLA BORHOT [facility] [address] [place] [address] 10/02/2024 NICOLA BORHOT [facility] [address] [place] [address] 11/23/2024 NICOLA BORHOT [facility] [address] [place] [address] 03/22/2025 NICOLA BORHOT [facility] [address] [place] [address] 04/13/2025 NICOLA BORHOT [facility] [address] [place] [address] 04/24/2025 NICOLA BORHOT Overweight (BMI 25.0-29.9) E66.3 Assessments Encounter Date Diagnosis (ICD Code) Assessment Notes Treatment Notes Treatment Clinical Notes Section Notes 07/07/2024 Other obesity due to excess calories (ICD-10 - E66.09) #Weight Management 07/07/2024 Updated labs are reviewed Thriving Increase to 1 mg Approaching target goal weight Discussed maintenance dosing Total time spent today was 30 minutes of which greater than 50% was spent on coordinating and counseling Patient has been found to be obese with a BMI of (30). Patient has class (1) obesity. We are a board certified obesity and weight management practice Patient has trialed behavioral modification, dietary restrictions and exercise for a minimum of 6 months The most recent [place] [employer] endocrinologists and [employer] guidelines recommend patients who have overweight BMI or obesity BMI, who also have metabolic syndrome, prediabetes, HLD, and other comorbidities or at risk of developing type 2 diabetes should aim for a weight loss goal of at least 10% of the baseline body weight Patient counseled regarding effects of GLP/GIP-1 agonists, and other FDA approved wgt loss meds with regards to a multifactorial approach of weight loss as mentioned above and not solely appetite suppression. Of note, some information is being carried forward from prior records for informational purposes only and is being cited so that efficiency, safety and quality of the patient's care is not compromised This note was prepared using voice recognition software and direct typing Please excuse inadvertent legal technician or typing errors, or uncorrected word substitutions Although every attempt has been made by the provider to proofread this document, occasional misspellings and typographical errors may still be present Due to the previous pandemic, and the use of personal protective equipment (PPE) This may decrease voice recognition accuracy Inadvertent legal technician errors may occur 07/07/2024 BMI 30.0-30.9,adult (ICD-10 - Z68.30) #Weight Management 07/07/2024 Updated labs are reviewed Thriving Increase to 1 mg Approaching target goal weight Discussed maintenance dosing Total time spent today was 30 minutes of which greater than 50% was spent on coordinating and counseling Patient has been found to be obese with a BMI of (30). Patient has class (1) obesity. We are a board certified obesity and weight management practice Patient has trialed behavioral modification, dietary restrictions and exercise for a minimum of 6 months The most recent [place] [employer]ocrinologists and [employer] guidelines recommend patients who have overweight BMI or obesity BMI, who also have metabolic syndrome, prediabetes, HLD, and other comorbidities or at risk of developing type 2 diabetes should aim for a weight loss goal of at least 10% of the baseline body weight Patient counseled regarding effects of GLP/GIP-1 agonists, and other FDA approved wgt loss meds with regards to a multifactorial approach of weight loss as mentioned above and not solely appetite suppression. Of note, some information is being carried forward from prior records for informational purposes only and is being cited so that efficiency, safety and quality of the patient's care is not compromised This note was prepared using voice recognition software and direct typing Please excuse inadvertent legal technician or typing errors, or uncorrected word substitutions Although every attempt has been made by the provider to proofread this document, occasional misspellings and typographical errors may still be present Due to the previous pandemic, and the use of personal protective equipment (PPE) This may decrease voice recognition accuracy Inadvertent legal technician errors may occur 08/27/2024 Overweight (BMI 25.0-29.9) (ICD-10 - E66.3) #Weight Management 08/27/2024 Updated labs are reviewed Thriving @ target goal weight Discussed maintenance dosing, decr by 50%, every 2 weeks Total time spent today was 30 minutes of which greater than 50% was spent on coordinating and counseling Patient has been found to be overweight with a BMI of (27). Patient has overweight class per BMI standards Of note, some information is being carried forward from prior records for informational purposes only and is being cited so that efficiency, safety and quality of the patient's care is not compromised This note was prepared using voice recognition software and direct typing Please excuse inadvertent legal technician or typing errors, or uncorrected word substitutions Although every attempt has been made by the provider to proofread this document, occasional misspellings and typographical errors may still be present Due to the previous pandemic, and the use of personal protective equipment (PPE) This may decrease voice recognition accuracy Inadvertent legal technician errors may occur 10/08/2024 Overweight (BMI 25.0-29.9) (ICD-10 - E66.3) #Weight Management 10/08/2024 cont maintenance dosing Total time spent today was 30 minutes of which greater than 50% was spent on coordinating and counseling Patient has been found to be overweight with a BMI of (28). Patient has overweight class per BMI standards Of note, some information is being carried forward from prior records for informational purposes only and is being cited so that efficiency, safety and quality of the patient's care is not compromised This note was prepared using voice recognition software and direct typing Please excuse inadvertent legal technician or typing errors, or uncorrected word substitutions Although every attempt has been made by the provider to proofread this document, occasional misspellings and typographical errors may still be present Due to the previous pandemic, and the use of personal protective equipment (PPE) This may decrease voice recognition accuracy Inadvertent legal technician errors may occur 11/25/2024 Overweight (BMI 25.0-29.9) (ICD-10 - E66.3) #Weight Management 11/25/2024 cont maintenance dosing Total time spent today was 30 minutes of which greater than 50% was spent on coordinating and counseling Patient has been found to be overweight with a BMI of (28). Patient has overweight class per BMI standards Of note, some information is being carried forward from prior records for informational purposes only and is being cited so that efficiency, safety and quality of the patient's care is not compromised This note was prepared using voice recognition software and direct typing Please excuse inadvertent legal technician or typing errors, or uncorrected word substitutions Although every attempt has been made by the provider to proofread this document, occasional misspellings and typographical errors may still be present Due to the previous pandemic, and the use of personal protective equipment (PPE) This may decrease voice recognition accuracy Inadvertent legal technician errors may occur 02/02/2025 Overweight (BMI 25.0-29.9) (ICD-10 - E66.3) #Weight Management 02/02/2025 cont maintenance dosing Follow-up on updated labs [...] software and direct typing Please excuse inadvertent legal technician or typing errors, or uncorrected word substitutions Although every attempt has been made by the provider to proofread this document, occasional misspellings and typographical errors may still be present Due to the previous pandemic, and the use of personal protective equipment (PPE) This may decrease voice recognition accuracy Inadvertent legal technician errors may occur 04/08/2025 Overweight (BMI 25.0-29.9) (ICD-10 - E66.3) #Weight Management 04/08/2025 cont maintenance dosing Follow-up on updated labs [...] software and direct typing Please excuse inadvertent legal technician or typing errors, or uncorrected word substitutions Although every attempt has been made by the provider to proofread this document, occasional misspellings and typographical errors may still be present Due to the previous pandemic, and the use of personal protective equipment (PPE) This may decrease voice recognition accuracy Inadvertent legal technician errors may occur 04/24/2025 Overweight (BMI 25.0-29.9) (ICD-10 - E66.3) 04/08/2025 BMI 27.0-27.9,adult (ICD-10 - Z68.27) #Weight Management 04/08/2025 cont maintenance dosing Follow-up on updated labs [...] software and direct typing Please excuse inadvertent legal technician or typing errors, or uncorrected word substitutions Although every attempt has been made by the provider to proofread this document, occasional misspellings and typographical errors may still be present Due to the previous pandemic, and the use of personal protective equipment (PPE) This may decrease voice recognition accuracy Inadvertent legal technician errors may occur 11/25/2024 BMI 28.0-28.9,adult (ICD-10 - Z68.28) #Weight Management 11/25/2024 cont maintenance dosing Total time spent today was 30 minutes of which greater than 50% was spent on coordinating and counseling Patient has been found to be overweight with a BMI of (28). Patient has overweight class per BMI standards Of note, some information is being carried forward from prior records for informational purposes only and is being cited so that efficiency, safety and quality of the patient's care is not compromised This note was prepared using voice recognition software and direct typing Please excuse inadvertent legal technician or typing errors, or uncorrected word substitutions Although every attempt has been made by the provider to proofread this document, occasional misspellings and typographical errors may still be present Due to the previous pandemic, and the use of personal protective equipment (PPE) This may decrease voice recognition accuracy Inadvertent legal technician errors may occur 02/02/2025 BMI 27.0-27.9,adult (ICD-10 - Z68.27) #Weight Management 02/02/2025 cont maintenance dosing Follow-up on updated labs [...] software and direct typing Please excuse inadvertent legal technician or typing errors, or uncorrected word substitutions Although every attempt has been made by the provider to proofread this document, occasional misspellings and typographical errors may still be present Due to the previous pandemic, and the use of personal protective equipment (PPE) This may decrease voice recognition accuracy Inadvertent legal technician errors may occur 08/27/2024 BMI 27.0-27.9,adult (ICD-10 - Z68.27) #Weight Management 08/27/2024 Updated labs are reviewed Thriving @ target goal weight Discussed maintenance dosing, decr by 50%, every 2 weeks Total time spent today was 30 minutes of which greater than 50% was spent on coordinating and counseling Patient has been found to be overweight with a BMI of (27). Patient has overweight class per BMI standards Of note, some information is being carried forward from prior records for informational purposes only and is being cited so that efficiency, safety and quality of the patient's care is not compromised This note was prepared using voice recognition software and direct typing Please excuse inadvertent legal technician or typing errors, or uncorrected word substitutions Although every attempt has been made by the provider to proofread this document, occasional misspellings and typographical errors may still be present Due to the previous pandemic, and the use of personal protective equipment (PPE) This may decrease voice recognition accuracy Inadvertent legal technician errors may occur 10/08/2024 BMI 28.0-28.9,adult (ICD-10 - Z68.28) #Weight Management 10/08/2024 cont maintenance dosing Total time spent today was 30 minutes of which greater than 50% was spent on coordinating and counseling Patient has been found to be overweight with a BMI of (28). Patient has overweight class per BMI standards Of note, some information is being carried forward from prior records for informational purposes only and is being cited so that efficiency, safety and quality of the patient's care is not compromised This note was prepared using voice recognition software and direct typing Please excuse inadvertent legal technician or typing errors, or uncorrected word substitutions Although every attempt has been made by the provider to proofread this document, occasional misspellings and typographical errors may still be present Due to the previous pandemic, and the use of personal protective equipment (PPE) This may decrease voice recognition accuracy Inadvertent legal technician errors may occur 07/07/2024 Dietary counseling and surveillance (ICD-10 - Z71.3) #Weight Management 07/07/2024 Updated labs are reviewed Thriving Increase to 1 mg Approaching target goal weight Discussed maintenance dosing Total time spent today was 30 minutes of which greater than 50% was spent on coordinating and counseling Patient has been found to be obese with a BMI of (30). Patient has class (1) obesity. We are a board certified obesity and weight management practice Patient has trialed behavioral modification, dietary restrictions and exercise for a minimum of 6 months The most recent [place] [employer]ocrinologists and [employer] guidelines recommend patients who have overweight BMI or obesity BMI, who also have metabolic syndrome, prediabetes, HLD, and other comorbidities or at risk of developing type 2 diabetes should aim for a weight loss goal of at least 10% of the baseline body weight Patient counseled regarding effects of GLP/GIP-1 agonists, and other FDA approved wgt loss meds with regards to a multifactorial approach of weight loss as mentioned above and not solely appetite suppression. Of note, some information is being carried forward from prior records for informational purposes only and is being cited so that efficiency, safety and quality of the patient's care is not compromised This note was prepared using voice recognition software and direct typing Please excuse inadvertent legal technician or typing errors, or uncorrected word substitutions Although every attempt has been made by the provider to proofread this document, occasional misspellings and typographical errors may still be present Due to the previous pandemic, and the use of personal protective equipment (PPE) This may decrease voice recognition accuracy Inadvertent legal technician errors may occur 07/07/2024 Migraine without status migrainosus, not intractable, unspecified migraine type (ICD-10 - G43.909) #Weight Management 07/07/2024 Updated labs are reviewed Thriving Increase to 1 mg Approaching target goal weight Discussed maintenance dosing Total time spent today was 30 minutes of which greater than 50% was spent on coordinating and counseling Patient has been found to be obese with a BMI of (30). Patient has class (1) obesity. We are a board certified obesity and weight management practice Patient has trialed behavioral modification, dietary restrictions and exercise for a minimum of 6 months The most recent [place] [employer]ocrinologists and [place] [employer] guidelines recommend patients who have overweight BMI or obesity BMI, who also have metabolic syndrome, prediabetes, HLD, and other comorbidities or at risk of developing type 2 diabetes should aim for a weight loss goal of at least 10% of the baseline body weight Patient counseled regarding effects of GLP/GIP-1 agonists, and other FDA approved wgt loss meds with regards to a multifactorial approach of weight loss as mentioned above and not solely appetite suppression. Of note, some information is being carried forward from prior records for informational purposes only and is being cited so that efficiency, safety and quality of the patient's care is not compromised This note was prepared using voice recognition software and direct typing Please excuse inadvertent legal technician or typing errors, or uncorrected word substitutions Although every attempt has been made by the provider to proofread this document, occasional misspellings and typographical errors may still be present Due to the previous pandemic, and the use of personal protective equipment (PPE) This may decrease voice recognition accuracy Inadvertent legal technician errors may occur 10/08/2024 Dietary counseling and surveillance (ICD-10 - Z71.3) #Weight Management 10/08/2024 cont maintenance dosing Total time spent today was 30 minutes of which greater than 50% was spent on coordinating and counseling Patient has been found to be overweight with a BMI of (28). Patient has overweight class per BMI standards Of note, some information is being carried forward from prior records for informational purposes only and is being cited so that efficiency, safety and quality of the patient's care is not compromised This note was prepared using voice recognition software and direct typing Please excuse inadvertent legal technician or typing errors, or uncorrected word substitutions Although every attempt has been made by the provider to proofread this document, occasional misspellings and typographical errors may still be present Due to the previous pandemic, and the use of personal protective equipment (PPE) This may decrease voice recognition accuracy Inadvertent legal technician errors may occur 08/27/2024 Dietary counseling and surveillance (ICD-10 - Z71.3) #Weight Management 08/27/2024 Updated labs are reviewed Thriving @ target goal weight Discussed maintenance dosing, decr by 50%, every 2 weeks Total time spent today was 30 minutes of which greater than 50% was spent on coordinating and counseling Patient has been found to be overweight with a BMI of (27). Patient has overweight class per BMI standards Of note, some information is being carried forward from prior records for informational purposes only and is being cited so that efficiency, safety and quality of the patient's care is not compromised This note was prepared using voice recognition software and direct typing Please excuse inadvertent legal technician or typing errors, or uncorrected word substitutions Although every attempt has been made by the provider to proofread this document, occasional misspellings and typographical errors may still be present Due to the previous pandemic, and the use of personal protective equipment (PPE) This may decrease voice recognition accuracy Inadvertent legal technician errors may occur 02/02/2025 Dietary counseling and surveillance (ICD-10 - Z71.3) #Weight Management 02/02/2025 cont maintenance dosing Follow-up on updated labs [...] software and direct typing Please excuse inadvertent legal technician or typing errors, or uncorrected word substitutions Although every attempt has been made by the provider to proofread this document, occasional misspellings and typographical errors may still be present Due to the previous pandemic, and the use of personal protective equipment (PPE) This may decrease voice recognition accuracy Inadvertent legal technician errors may occur 11/25/2024 Dietary counseling and surveillance (ICD-10 - Z71.3) #Weight Management 11/25/2024 cont maintenance dosing Total time spent today was 30 minutes of which greater than 50% was spent on coordinating and counseling Patient has been found to be overweight with a BMI of (28). Patient has overweight class per BMI standards Of note, some information is being carried forward from prior records for informational purposes only and is being cited so that efficiency, safety and quality of the patient's care is not compromised This note was prepared using voice recognition software and direct typing Please excuse inadvertent legal technician or typing errors, or uncorrected word substitutions Although every attempt has been made by the provider to proofread this document, occasional misspellings and typographical errors may still be present Due to the previous pandemic, and the use of personal protective equipment (PPE) This may decrease voice recognition accuracy Inadvertent legal technician errors may occur 04/08/2025 Dietary counseling and surveillance (ICD-10 - Z71.3) #Weight Management 04/08/2025 cont maintenance dosing Follow-up on updated labs [...] software and direct typing Please excuse inadvertent legal technician or typing errors, or uncorrected word substitutions Although every attempt has been made by the provider to proofread this document, occasional misspellings and typographical errors may still be present Due to the previous pandemic, and the use of personal protective equipment (PPE) This may decrease voice recognition accuracy Inadvertent legal technician errors may occur 04/08/2025 Migraine without status migrainosus, not intractable, unspecified migraine type (ICD-10 - G43.909) #Weight Management 04/08/2025 cont maintenance dosing Follow-up on updated labs [...] software and direct typing Please excuse inadvertent legal technician or typing errors, or uncorrected word substitutions Although every attempt has been made by the provider to proofread this document, occasional misspellings and typographical errors may still be present Due to the previous pandemic, and the use of personal protective equipment (PPE) This may decrease voice recognition accuracy Inadvertent legal technician errors may occur 11/25/2024 Migraine without status migrainosus, not intractable, unspecified migraine type (ICD-10 - G43.909) #Weight Management 11/25/2024 cont maintenance dosing Total time spent today was 30 minutes of which greater than 50% was spent on coordinating and counseling Patient has been found to be overweight with a BMI of (28). Patient has overweight class per BMI standards Of note, some information is being carried forward from prior records for informational purposes only and is being cited so that efficiency, safety and quality of the patient's care is not compromised This note was prepared using voice recognition software and direct typing Please excuse inadvertent legal technician or typing errors, or uncorrected word substitutions Although every attempt has been made by the provider to proofread this document, occasional misspellings and typographical errors may still be present Due to the previous pandemic, and the use of personal protective equipment (PPE) This may decrease voice recognition accuracy Inadvertent legal technician errors may occur 02/02/2025 Migraine without status migrainosus, not intractable, unspecified migraine type (ICD-10 - G43.909) #Weight Management 02/02/2025 cont maintenance dosing Follow-up on updated labs [...] software and direct typing Please excuse inadvertent legal technician or typing errors, or uncorrected word substitutions Although every attempt has been made by the provider to proofread this document, occasional misspellings and typographical errors may still be present Due to the previous pandemic, and the use of personal protective equipment (PPE) This may decrease voice recognition accuracy Inadvertent legal technician errors may occur 08/27/2024 Migraine without status migrainosus, not intractable, unspecified migraine type (ICD-10 - G43.909) #Weight Management 08/27/2024 Updated labs are reviewed Thriving @ target goal weight Discussed maintenance dosing, decr by 50%, every 2 weeks Total time spent today was 30 minutes of which greater than 50% was spent on coordinating and counseling Patient has been found to be overweight with a BMI of (27). Patient has overweight class per BMI standards Of note, some information is being carried forward from prior records for informational purposes only and is being cited so that efficiency, safety and quality of the patient's care is not compromised This note was prepared using voice recognition software and direct typing Please excuse inadvertent legal technician or typing errors, or uncorrected word substitutions Although every attempt has been made by the provider to proofread this document, occasional misspellings and typographical errors may still be present Due to the previous pandemic, and the use of personal protective equipment (PPE) This may decrease voice recognition accuracy Inadvertent legal technician errors may occur 10/08/2024 Migraine without status migrainosus, not intractable, unspecified migraine type (ICD-10 - G43.909) #Weight Management 10/08/2024 cont maintenance dosing Total time spent today was 30 minutes of which greater than 50% was spent on coordinating and counseling Patient has been found to be overweight with a BMI of (28). Patient has overweight class per BMI standards Of note, some information is being carried forward from prior records for informational purposes only and is being cited so that efficiency, safety and quality of the patient's care is not compromised This note was prepared using voice recognition software and direct typing Please excuse inadvertent legal technician or typing errors, or uncorrected word substitutions Although every attempt has been made by the provider to proofread this document, occasional misspellings and typographical errors may still be present Due to the previous pandemic, and the use of personal protective equipment (PPE) This may decrease voice recognition accuracy Inadvertent legal technician errors may occur 07/07/2024 Depression with anxiety (ICD-10 - F41.8) #Weight Management 07/07/2024 Updated labs are reviewed Thriving Increase to 1 mg Approaching target goal weight Discussed maintenance dosing Total time spent today was 30 minutes of which greater than 50% was spent on coordinating and counseling Patient has been found to be obese with a BMI of (30). Patient has class (1) obesity. We are a board certified obesity and weight management practice Patient has trialed behavioral modification, dietary restrictions and exercise for a minimum of 6 months The most recent [place] [employer] and [employer] guidelines recommend patients who have overweight BMI or obesity BMI, who also have metabolic syndrome, prediabetes, HLD, and other comorbidities or at risk of developing type 2 diabetes should aim for a weight loss goal of at least 10% of the baseline body weight Patient counseled regarding effects of GLP/GIP-1 agonists, and other FDA approved wgt loss meds with regards to a multifactorial approach of weight loss as mentioned above and not solely appetite suppression. Of note, some information is being carried forward from prior records for informational purposes only and is being cited so that efficiency, safety and quality of the patient's care is not compromised This note was prepared using voice recognition software and direct typing Please excuse inadvertent legal technician or typing errors, or uncorrected word substitutions Although every attempt has been made by the provider to proofread this document, occasional misspellings and typographical errors may still be present Due to the previous pandemic, and the use of personal protective equipment (PPE) This may decrease voice recognition accuracy Inadvertent legal technician errors may occur 08/27/2024 Depression with anxiety (ICD-10 - F41.8) #Weight Management 08/27/2024 Updated labs are reviewed Thriving @ target goal weight Discussed maintenance dosing, decr by 50%, every 2 weeks Total time spent today was 30 minutes of which greater than 50% was spent on coordinating and counseling Patient has been found to be overweight with a BMI of (27). Patient has overweight class per BMI standards Of note, some information is being carried forward from prior records for informational purposes only and is being cited so that efficiency, safety and quality of the patient's care is not compromised This note was prepared using voice recognition software and direct typing Please excuse inadvertent legal technician or typing errors, or uncorrected word substitutions Although every attempt has been made by the provider to proofread this document, occasional misspellings and typographical errors may still be present Due to the previous pandemic, and the use of personal protective equipment (PPE) This may decrease voice recognition accuracy Inadvertent legal technician errors may occur 11/25/2024 Depression with anxiety (ICD-10 - F41.8) #Weight Management 11/25/2024 cont maintenance dosing Total time spent today was 30 minutes of which greater than 50% was spent on coordinating and counseling Patient has been found to be overweight with a BMI of (28). Patient has overweight class per BMI standards Of note, some information is being carried forward from prior records for informational purposes only and is being cited so that efficiency, safety and quality of the patient's care is not compromised This note was prepared using voice recognition software and direct typing Please excuse inadvertent legal technician or typing errors, or uncorrected word substitutions Although every attempt has been made by the provider to proofread this document, occasional misspellings and typographical errors may still be present Due to the previous pandemic, and the use of personal protective equipment (PPE) This may decrease voice recognition accuracy Inadvertent legal technician errors may occur 10/08/2024 Depression with anxiety (ICD-10 - F41.8) #Weight Management 10/08/2024 cont maintenance dosing Total time spent today was 30 minutes of which greater than 50% was spent on coordinating and counseling Patient has been found to be overweight with a BMI of (28). Patient has overweight class per BMI standards Of note, some information is being carried forward from prior records for informational purposes only and is being cited so that efficiency, safety and quality of the patient's care is not compromised This note was prepared using voice recognition software and direct typing Please excuse inadvertent legal technician or typing errors, or uncorrected word substitutions Although every attempt has been made by the provider to proofread this document, occasional misspellings and typographical errors may still be present Due to the previous pandemic, and the use of personal protective equipment (PPE) This may decrease voice recognition accuracy Inadvertent legal technician errors may occur 02/02/2025 Depression with anxiety (ICD-10 - F41.8) #Weight Management 02/02/2025 cont maintenance dosing Follow-up on updated labs [...] software and direct typing Please excuse inadvertent legal technician or typing errors, or uncorrected word substitutions Although every attempt has been made by the provider to proofread this document, occasional misspellings and typographical errors may still be present Due to the previous pandemic, and the use of personal protective equipment (PPE) This may decrease voice recognition accuracy Inadvertent legal technician errors may occur 04/08/2025 Depression with anxiety (ICD-10 - F41.8) #Weight Management 04/08/2025 cont maintenance dosing Follow-up on updated labs [...] software and direct typing Please excuse inadvertent legal technician or typing errors, or uncorrected word substitutions Although every attempt has been made by the provider to proofread this document, occasional misspellings and typographical errors may still be present Due to the previous pandemic, and the use of personal protective equipment (PPE) This may decrease voice recognition accuracy Inadvertent legal technician errors may occur 04/08/2025 Encounter for examination of blood pressure without abnormal findings (ICD-10 - Z01.30) #Weight Management 04/08/2025 cont maintenance dosing Follow-up on updated labs [...] software and direct typing Please excuse inadvertent legal technician or typing errors, or uncorrected word substitutions Although every attempt has been made by the provider to proofread this document, occasional misspellings and typographical errors may still be present Due to the previous pandemic, and the use of personal protective equipment (PPE) This may decrease voice recognition accuracy Inadvertent legal technician errors may occur 02/02/2025 Encounter for examination of blood pressure without abnormal findings (ICD-10 - Z01.30) #Weight Management 02/02/2025 cont maintenance dosing Follow-up on updated labs [...] software and direct typing Please excuse inadvertent legal technician or typing errors, or uncorrected word substitutions Although every attempt has been made by the provider to proofread this document, occasional misspellings and typographical errors may still be present Due to the previous pandemic, and the use of personal protective equipment (PPE) This may decrease voice recognition accuracy Inadvertent legal technician errors may occur 08/20/2024 #Weight Management 08/20/2024 Updated labs are reviewed [...] software and direct typing Please excuse inadvertent legal technician or typing errors, or uncorrected word substitutions Although every attempt has been made by the provider to proofread this document, occasional misspellings and typographical errors may still be present Due to the previous pandemic, and the use of personal protective equipment (PPE) This may decrease voice recognition accuracy Inadvertent legal technician errors may occur 03/23/2025 #Weight Management 03/23/2025 cont maintenance dosing Follow-up [...] software and direct typing Please excuse inadvertent legal technician or typing errors, or uncorrected word substitutions Although every attempt has been made by the provider to proofread this document, occasional misspellings and typographical errors may still be present Due to the previous pandemic, and the use of personal protective equipment (PPE) This may decrease voice recognition accuracy Inadvertent legal technician errors may occur Plan Of Treatment Next Appt Details Provider Name:NICOLA HARVEY, 05/20/2025 09:15:00 AM, [address] [facility], [facility] [address], [place], [address], Insurance Providers Payer Name Payer Address Payer Phone Subscriber Number Group Number Insured Name Patient Relationship to Insured Coverage Start Date Coverage End Date [facility] [address] [place] [address] [id number] [id number] BALDERAS Self - patient is the insured 3 Medical (General) History Medical History History ICD Code food allergies asthma weight gain/loss headaches knee problems depression seasonal allergies
== END 2025-05-18 12:48 | disposition home or self-care (01) ==
LOC: HO.HSM 11:53
PROVIDERS: PCP Physician Assistant Medical; Visit Provider Nurse Practitioner
DX: G43.009 Migraine without aura, not intractable, without status migrainosus (principal)
CPT/HCPCS: 99204